=== PATIENT | female | born 1960 | race Caucasian/White ===

== ENCOUNTER 2016-12-27 20:48 | Inpatient (IN) ==
[2016-12-27 21:52] LABS: BASO% 0.4 % (0.0-0.8); EOS# 0.15 X1000 (0.0-0.7); EOS% 1.5 % (0.0-10.0); HEMOGLOBIN 11.6 g/dL (12.0-16.0); IMM GRAN# 0.15 X1000 (0.0-0.04); IMM GRAN% 1.5 % (0.0-0.5); LYMPH# 2.81 X1000 (1.2-3.4); MANUAL DIFF NEEDED? NO; MCHC 32.2 g/dL (33-37); MONO# 0.67 X1000 (0.11-0.59); MONO% 6.7 % (1.7-9.3); MPV 11.7 FL (7.4-10.4); NEUT% 61.9 % (42.2-75.2); PLT 259 X1000 (130-400); RBC 4.14 XMIL (4.2-5.4)
[2016-12-27] MEDS ORDERED: ATIVAN IV ONE (21:52)
[2016-12-27 21:56] LABS: INR 1.01; PROTIME 10.6 Seconds (9.2-11.7)
[2016-12-27 22:01] LABS: ALBUMIN 4.3 g/dL (3.5-5.0); CALCIUM 9.8 mg/dL (8.8-10.2); MAGNESIUM 1.9 mg/dL (1.5-2.7); TOTAL BILIRUBIN 0.21 mg/dL (0.20-1.00); TOTAL PROTEIN 7.3 g/dL (6.3-8.3)
[2016-12-27 22:18] LABS: CK INDEX 1.6 (0.0-2.5); CK-MB 4.01 ng/mL (0.0-5.0)
--- NOTE | 2016-12-27 22:39 | Diag Imaging Result Doc PS360 ---
EXAM: CHEST-PORTABLE - 12/27/2016 HISTORY: weakness/seizure TECHNIQUE: Portable chest 2140 COMPARISON: None. FINDINGS: Heart size appears borderline enlarged. Inspiration appears mildly shallow, and the projection is somewhat lordotic. There are calcified left hilar mediastinal lymph nodes from old granulomatous disease. There is bilateral mild interstitial marking prominence. There is hazy infiltrate at the lateral left base. There is no substantial pleural effusion or pneumothorax identified. IMPRESSION: Mild interstitial infiltrates, edema, or scarring. Hazy infiltrate at lateral left base. Electronically signed by Arturo Pearson 12/27/2016 10:37 PM
[2016-12-27] MEDS ORDERED: KEPPRA 1,000 MG/NS 1,000 MG/100 ML IVPB IV ONE ×2 (23:00→23:49)
--- NOTE | 2016-12-27 23:06 | Diag Imaging Result Doc PS360 ---
EXAM: HEAD W/O CONTRAST - 12/27/2016 HISTORY: new seizure TECHNIQUE: Dose reduction protocol COMPARISON: None. FINDINGS: There are mild atrophic changes. There is no evidence of hemorrhage, mass effect, midline shift, or hydrocephalus. There is no evidence of infarct, although acute infarcts may not be immediately visible. There is apparent chronic left maxillary sinusitis noted, primarily at the inferior portion of the sinus. IMPRESSION: No visible acute intracranial anatomy. No hemorrhage or mass effect. A [facility] physician provided preliminary results at 10:36 PM on 12/27/2016. Electronically signed by Arturo Pearson 12/27/2016 11:04 PM
--- NOTE | 2016-12-27 23:15 | PROVIDER DOCUMENTATION ---
HPI-General Adult - General Chief Complaint: Seizure Stated Complaint: possible seizure Time Seen by Provider: 12/27/16 20:56 Source: patient, family Allergies/Adverse Reactions: Patient Allergies Allergy/AdvReac Type Severity Reaction Status Date / Time No Known Allergies Allergy Verified 12/27/16 22:27 Home Medications: Home Medication List Medication Instructions Recorded Confirmed Last Taken Type Amitriptyline HCl [Amitriptyline 1 tab PO DAILY 12/27/16 12/27/16 12/27/16 History HCl] Aspirin [Aspir-Low] 1 tab PO DAILY 12/27/16 12/27/16 12/27/16 History Calcium Citrate/Vitamin D 2 tab PO DAILY 12/27/16 12/27/16 12/27/16 History [Citracal + D] Cetirizine HCl [Zyrtec] 1 tab PO DAILY 12/27/16 12/27/16 12/27/16 History Esomeprazole [Nexium] 1 tab PO DAILY 12/27/16 12/27/16 12/27/16 History Fenofibrate [Fenofibrate] 1 tab PO DAILY 12/27/16 12/27/16 12/27/16 History Folic Acid/Mv,Fe,Min [Centrum 1 tab PO DAILY 12/27/16 12/27/16 12/27/16 History Chewable Tablet] Furosemide [Lasix] 1 tab PO DAILY 12/27/16 12/27/16 12/27/16 History Glimepiride [Amaryl] 1 tab PO DAILY 12/27/16 12/27/16 12/27/16 History Levothyroxine [Synthroid] 1 tab PO DAILY 12/27/16 12/27/16 12/27/16 History Mirabegron [Myrbetriq] 1 tab PO DAILY 12/27/16 12/27/16 12/27/16 History Potassium Chloride 1 tab PO DIRECTED 12/27/16 12/27/16 Unknown History Quetiapine Fumarate [Seroquel] 1 tab PO DAILY 12/27/16 12/27/16 12/27/16 History Sertraline [Zoloft] 100 mg PO DAILY 12/27/16 12/27/16 12/27/16 History Simvastatin [Simvastatin] 1 tab PO DAILY 12/27/16 12/27/16 12/27/16 History Valsartan/Hydrochlorothiazide 1 tab PO DAILY 12/27/16 12/27/16 12/27/16 History [Diovan Hct 160-12.5 mg Tab] - History of Present Illness -Gen Adult Nature of Presenting Problems: pt From [facility]. RN witnessed two clonic-tonic like seizures today. She was incontinent. EMS states pt was postictal upon arrival. On arrival to ER, pt's mental status is as baseline per family. Family denies cough, fever, n /v, urinary frequency. Location of Pain/Injury: reports: none Pain Radiation: reports: no radiation Quality of Pain: reports: none Onset/Duration: reports: just prior to arrival Timing: reports: still present Context/Activities at Onset: reports: none Modifying Factors: improves with: nothing Associated Symptoms: reports: seizure. denies: chest pain, cough, dizziness, fever/chills, headaches, vomiting, weakness Similar Symptoms Previously?: No Recently seen or treated by another doctor?: No Review of Systems - Adult - REVIEW OF SYSTEMS - ADULT ROS:: ROS per family Constitutional: reports: no symptoms reported. denies: fever Eyes: reports: no symptoms reported Ears, Nose, Mouth & Throat: reports: no symptoms reported Cardiovascular: reports: no symptoms reported. denies: chest pain Respiratory: reports: no symptoms reported. denies: cough Gastrointestinal: reports: no symptoms reported. denies: abdominal pain Genitourinary: reports: no symptoms reported Musculoskeletal: reports: no symptoms reported. denies: bone pain Integumentary: reports: no symptoms reported. denies: rash Neurological: reports: see HPI Psychiatric: reports: no symptoms reported Endocrine: reports: no symptoms reported Hematologic/Lymphatic: reports: no symptoms reported Allergic/Immunologic: reports: no symptoms reported All Other Systems: Reviewed and Negative Past History - Adult - PAST MEDICAL HISTORY-ADULT Review of Records: reports: Old Records Reviewed, Nursing Assessment Review, Medications Reviewed, Social history reviewed & non-contributory. Major Childhood Illnesses: reports: denies history Cardiovascular: reports: denies history Respiratory: reports: denies history Gastrointestinal: reports: denies history Obstetrical/Gynecological: reports: denies history Genitourinary: reports: denies history Musculoskeletal: reports: denies history Neurological: reports: denies history Endocrine/Immune: reports: denies history Other Conditions: reports: denies history - IMMUNIZATION STATUS Childhood Immunizations: See Nurse Assessment Flu Vaccine: See Nurse Assessment - FAMILY HISTORY Family History: reviewed, not pertinent Physical Exam-General - PHYSICAL EXAM-ADULT Initial Vital Signs Reviewed: Yes (spo2 100%) - CONSTITUTIONAL General Appearance: appears well, alert, no apparent distress - EYES Eyes: pink conjunctivae - HEAD, EARS, NOSE, MOUTH & THROAT HENMT: normocephalic/atraumatic - NECK Neck: supple - RESPIRATORY Respiratory: lungs clear, normal breath sounds - CARDIOVASCULAR Cardiovascular: normal peripheral pulses, regular rate, rhythm, no edema - GASTROINTESTINAL (ABDOMEN) Abdominal Exam: normal bowel sounds, non tender, soft - MUSCULOSKELETAL Back Exam: normal inspection Extremity: normal range of motion, non-tender - SKIN Integumentary: normal color - NEUROLOGIC Neurologic: grossly normal, no motor/sensory deficits Progress - PLAN OF CARE/RESULTS Progress/Plan/Lab Results: Vital Signs - 8 hr 12/27/16 20:56 12/27/16 22:25 Temperature 97.8 F Pulse Rate 114 H 101 H Respiratory Rate 17 19 Blood Pressure 131/103 114/86 O2 Sat by Pulse Oximetry 109 H 92 L Laboratory Results - last 24 hr 12/27/16 12/27/16 12/27/16 21:30 21:30 21:30 WBC 10.02 RBC 4.14 L Hgb 11.6 L Hct 36.0 L MCV 87.0 MCH 28.0 MCHC 32.2 L RDW Std Deviation 13.5 Plt Count 259 MPV 11.7 H Immature Gran % (Auto) 1.5 H Neut % (Auto) 61.9 Lymph % (Auto) 28.0 Grundy % (Auto) 6.7 Eos % (Auto) 1.5 Baso % (Auto) 0.4 Immature Gran # (Auto) 0.15 H Neut # (Auto) 6.20 Lymph # (Auto) 2.81 Grundy # (Auto) 0.67 H Eos # (Auto) 0.15 Baso # (Auto) 0.04 PT 10.6 INR 1.01 PTT (Actin FS) 18.0 L Sodium 140 Potassium 4.0 Chloride 99 Carbon Dioxide 28 Anion Gap 13 BUN 21 Creatinine 1.0 H Estimated GFR/1.73 m2 57 BUN/Creatinine Ratio 21 Glucose 182 H Calculated Osmolality 287 Calcium 9.8 Magnesium 1.9 Total Bilirubin 0.21 AST 37 H ALT 29 Alkaline Phosphatase 61 Creatine Kinase 254 H Creatine Kinase Index 1.6 CK-MB (CK-2) 4.01 Troponin T Total Protein 7.3 Albumin 4.3 Globulin 3.0 Albumin/Globulin Ratio 1.4 12/27/16 21:30 WBC RBC Hgb Hct MCV MCH MCHC RDW Std Deviation Plt Count MPV Immature Gran % (Auto) Neut % (Auto) Lymph % (Auto) Grundy % (Auto) Eos % (Auto) Baso % (Auto) Immature Gran # (Auto) Neut # (Auto) Lymph # (Auto) Grundy # (Auto) Eos # (Auto) Baso # (Auto) PT INR PTT (Actin FS) Sodium Potassium Chloride Carbon Dioxide Anion Gap BUN Creatinine Estimated GFR/1.73 m2 BUN/Creatinine Ratio Glucose Calculated Osmolality Calcium Magnesium Total Bilirubin AST ALT Alkaline Phosphatase Creatine Kinase Creatine Kinase Index CK-MB (CK-2) Troponin T < 0.010 Total Protein Albumin Globulin Albumin/Globulin Ratio Orders Category Date Time Status Saline Loc NOW Care 12/27/16 21:20 Active CHEST-PORTABLE [RAD] Stat Exams 12/27/16 21:20 Completed HEAD W/O CONTRAST [CT] Stat Exams 12/27/16 21:20 Completed CBC WITH ELECTRONIC DIFF [HEME] Stat Lab 12/27/16 21:30 Completed CK PROFILE [SP CHEM] Stat Lab 12/27/16 21:30 Completed COMPREHENSIVE METABOLIC PANEL [CHEM] Stat Lab 12/27/16 21:30 Completed MAGNESIUM [CHEM] Stat Lab 12/27/16 21:30 Completed PROTIME WITH INR [COAG] Stat Lab 12/27/16 21:30 Completed PTT [COAG] Stat Lab 12/27/16 21:30 Completed TROPONIN T Stat Lab 12/27/16 21:30 Completed UA NIMS W/REFLEX CULT [URINALYSIS] Stat Lab 12/27/16 21:20 Uncollected URINE DRUG SCREEN Stat Lab 12/27/16 21:20 Uncollected Lorazepam [Ativan] Med 12/27/16 21:52 Discontinued 1 mg IV NOW ONE EKG [EKG] Stat Ther 12/27/16 21:20 Ordered EKG [EKG] Stat Ther 12/27/16 21:20 Ordered Case and plan of care discussed with Dr. Decker Result Diagrams: 12/27/16 21:30 12/27/16 21:30 - XRAY 1 XRAY Study: Chest Impression: See EMR Report - CT/MRI 1 CT Study: Head Impression: Normal - CONSULTS/PCP/HOSPITALIST Notification #1 *Consult/PCP/Hospitalist*: Dr. Leonard Time Discussed: 00:00 Consult Disposition: Admit Departure - Departure Date of Disposition Decision: 12/28/16 Time of Disposition Decision: 00:00 DIAGNOSIS: Seizure-like activity Disposition: ADMITTED INPATIENT 09 Certified Medical Emergency: Emergent Condition: Stable Referrals and Follow-Ups: Barbara Vu MD [Primary Care Provider] - - Critical Care Note This patient required my direct & personal management of CC.: No Attestation - Physician/ DAVID Attestation Patient care was provided by Advanced Practice Provider:: Yes Advanced Practice Provider:: Toan Mcdonald Advanced Practice Provider documentation review:: The Mid-level provider documentation, treatment plan and medical decision making was reviewed by the physician who agrees with all treatment and medical decision making by the MLP. The physician spent face to face time with patient:: No Advanced Practice Provider documentation review:: Supervising physician onsite and consulted in the evaluation and care of this patient. The physician did not have a face to face encounter with the patient.
--- NOTE | 2016-12-28 00:23 | ED EKG INTERP ---
This chart was entered by Celestino Ocampo Scribe, acting as scribe for Patrick Adams MD. EKG Interpretation - EKG Time of EKG reading by physician:: 21:24 EKG Read and Signed by:: Patrick Adams EKG Interpretation (*Must complete 3 of following elements*): Normal Rate: 104 Rhythm: Sinus tachycardia Attestation - Physician/ DAVID Attestation Patient care was provided by Advanced Practice Provider:: No The physician spent face to face time with patient:: Yes Advanced Practice Provider documentation review:: Supervising physician onsite and consulted in the evaluation and care of this patient. The physician did have a face to face encounter with the patient. This chart was documented by the indicated scribe, (Celestino Ocampo Scribe) and accurately reflects the services I performed and decisions made by me, Patrick Panda MD, as attested by the provider's signature.
[2016-12-28] MEDS ORDERED: TYLENOL PO PRN (01:22)
[2016-12-28] MEDS: LOVENOX SUBQ SCH (03:02)
--- NOTE | 2016-12-28 03:27 | HISTORY AND PHYSICAL ---
PCP: Dr. Barbara Vu. CHIEF COMPLAINT: New onset seizures. HISTORY OF PRESENT ILLNESS: Ms. Gilliland is a 56-year-old lady with past medical history of mental retardation, hypertension, diabetes, hyperlipidemia, OCD, paranoid schizophrenia who comes to the hospital after having 2 seizures. The history was obtained by Nicole Eldridge who is Ms. Gilliland's legal guardian and also by the mixing house operator where the patient lives. According to the mixing house operator, the patient has been acting differently all day on the day of admission. According to the supervisor product inspection, she was slower than usual, taking longer to eat, seemed more confused. Around 7:30 p.m., the patient was sitting on the commode and nurse was standing by the patient's side who witnessed a seizure, tonic-clonic, which lasted about 1 minute. The patient lost urinary continence, did not bite the tongue. The patient did not fall as she was being held on the commode during the episode. After the seizure, the patient seemed postictal for about 20 seconds and then another seizure happened again, which lasted for about 30 seconds. The patient has no history of previous seizures. This is the first time it happened. The patient's legal guardian states that about a week ago, the patient had vomiting, diarrhea, fever of 101.8 degrees. The patient was taken to the PCP on Thursday but by then, Ms. Gilliland was back to normal. REVIEW OF SYSTEMS: According to the mixing house operator, it seems that Ms. Gilliland is a little bit more jerky than usual, especially with her right lower extremity. Ms. Gilliland has no complaints. All systems were reviewed and were negative except as stated above. In the Emergency Room, the patient was given lorazepam 1 mg and 1000 mg of levetiracetam. PAST MEDICAL HISTORY: Mental retardation, hypertension, diabetes mellitus, hyperlipidemia, OCD, paranoid schizophrenia, anxiety, lymphedema, hearing loss, urinary incontinence. PAST SURGICAL HISTORY: Tonsillectomy. ALLERGIES: None. HOME MEDICATIONS: 1. Calcium tablets daily. 2. Nexium 40 mg tablet p.o. daily. 3. Zyrtec 10 mg tablet p.o. daily. 4. Amaryl 2 mg p.o. daily. 5. Potassium 10 mEq p.o. daily. 6. Lasix 20 mg every other day. 7. Myrbetriq 50 mg, 1 tablet p.o. daily. 8. Fenofibrate 160 mg tablet p.o. daily. 9. Diovan 160 mg/12.5 mg, 1 tablet p.o. daily. 10.Levothyroxine 50 mcg, 1 tablet p.o. daily. 11.Seroquel 300 mg, 1 tablet p.o. daily. 12.Aspirin 81 mg tablet p.o. daily. 13.Zoloft 100 mg tablet p.o. daily. 14.Amitriptyline 25 mg p.o. daily. 15.Simvastatin 20 mg tablet p.o. at bedtime. SOCIAL HISTORY: The patient's guardians deny any smoking, alcohol or drugs. The patient has lived in the long-term in [place]. The patient has been under their care for the last 12 years. The caretakers do not know anything about Ms. Gilliland's past. They have been taking care of her for the last 12 years. Other than that, they are not aware of her social or medical situation. Previously, Ms. Gilliland was being taken care of by her mother who also has mental retardation. FAMILY HISTORY: Sister and mother with mental retardation. Mother also has CHF , CAD, diabetes. Father had coronary artery disease and of lung cancer. LABORATORY DATA: White blood cell count 10.2, hemoglobin 11.6, hematocrit 36, platelets 259. Sodium 140, potassium 4, BUN 21, creatinine 1, glucose 182. IMAGING: Chest x-ray shows hazy infiltrates at lateral left base. Head CT shows no acute intracranial process. PHYSICAL EXAMINATION: VITAL SIGNS: Temperature 97.8 degrees, pulse 101, respirations 19, blood pressure 114/86, oxygen saturation 92% on room air. GENERAL: The patient is alert and oriented x 1, which is at her baseline. No acute distress. HEENT: Head is normocephalic, atraumatic. Eyes: PERRLA. Moist mucous membranes. NECK: Supple. PULMONARY: Well ventilated bilaterally. No wheezing, rales or crackles. CARDIOVASCULAR: S1, S2. No rubs, murmurs or gallops. ABDOMEN: Soft, nontender, nondistended. EXTREMITIES: No lower extremity edema. The patient has a bruise on her right middle toe which occurred at home a couple of days ago. NEUROLOGIC: Cranial nerves are intact. PSYCHIATRIC: According to the patient's caretakers, she is almost back to baseline. At times she seems more confused than usual, waxing and waning. ASSESSMENT AND PLAN: 1. New-onset seizures. The etiology is currently unknown. Does not seem to be infectious at the moment. White blood cell count is stable. We will continue to monitor. As mentioned above, head CT was also done which shows no acute intracranial process. The patient was already given Keppra and we will continue giving this medication and Neurology consult will be considered. An EEG may be needed. 2. Hypertension. We will continue the patient's home medication, Diovan. 3. Hyperlipidemia. We will continue home medication, fenofibrate. 4. Hypothyroidism. We will continue home medication, levothyroxine 50 mcg. 5. Anxiety. We will continue patient's home medications, Seroquel 300 mg and Zoloft 100 mg. cc: Shalini Leonard MD MTDD
[2016-12-28 03:30] LABS: URINE MICRO REVIEW NEEDED? NO; URINE SOURCE CLEAN CATCH
[2016-12-28 03:36] LABS: BILIRUBIN URINE NEGATIVE (NEGATIVE); BLOOD URINE NEGATIVE (NEGATIVE); COLOR YELLOW; GLUCOSE URINE NEGATIVE (NEGATIVE); LEUKOCYTES URINE MODERATE (NEGATIVE); NITRITE URINE NEGATIVE (NEGATIVE); PH URINE 6.5; PROTEIN URINE TRACE mg/dL (NEGATIVE); SP GRAVITY URINE 1.019; TURBIDITY URINE CLEAR (CLEAR); UROBILINOGEN URINE NORMAL (NORMAL)
[2016-12-28 03:38] LABS: UR EPITHELIAL CELLS <10 /HPF (<10); URINE BACTERIA NEGATIVE /HPF; URINE CULTURE NEEDED? YES; URINE RBC <10 /HPF (<10); URINE WBC <10 /HPF (<10)
[2016-12-28 03:46] LABS: UR AMPHETAMINES QUAL NONE DETECTED (NONE DETECT); UR BARBITUATES QUAL NONE DETECTED (NONE DETECT); UR BENZODIAZEPIN QUAL NONE DETECTED (NONE DETECT); UR CANNABINOIDS QUAL NONE DETECTED (NONE DETECT); UR COCAINE QUAL NONE DETECTED (NONE DETECT); UR METHADONE QUAL NONE DETECTED (NONE DETECT); UR OPIATES QUAL NONE DETECTED (NONE DETECT); UR OXYCODONE QUAL NONE DETECTED (NONE DETECT); UR PCP QUAL NONE DETECTED (NONE DETECT)
[2016-12-28] MEDS: MYRBETRIQ E.R. PO SCH (09:45)
[2016-12-28] MEDS: KEPPRA PO SCH ×2 (09:46→20:27)
[2016-12-28] MEDS: LASIX PO SCH (09:46)
[2016-12-28] MEDS: ZOLOFT PO SCH (09:46)
[2016-12-28] MEDS: HYDROCHLOROTHIAZIDE PO SCH (09:46)
[2016-12-28] MEDS: DIOVAN PO SCH (09:46)
[2016-12-28] MEDS: ASPIRIN PO SCH (09:46)
[2016-12-28] MEDS ORDERED: KLONOPIN PO ONE (11:53)
[2016-12-28] MEDS ORDERED: ATIVAN PO ONE (11:54)
--- NOTE | 2016-12-28 19:13 | PROGRESS NOTE ---
DATE: 12/28/2016 SUBJECTIVE: The patient has no focal complaints. She is awake, alert. Per the nurse today though she is not at baseline, she is still confused, apparently she is usually pretty with it. She knows where she is but she is still asking questions that are where she is unclear where she is and what is going on. Again I am not familiar with her. She has significant developmental delay, intellectual impairment but apparently she usually is oriented. OBJECTIVE: Vital signs: Blood pressure 103/69, heart rate 73, respiratory 16, temperature 98.6 degrees, 100% on 2 L. Cardiovascular: Regular rate and rhythm. Pulmonary: Bilateral breath sounds. Clear to auscultation. GI: Soft, nontender, nondistended. Bowel sounds are positive. LABORATORY DATA: Nothing new today. She is anemic with normocytic indices. PROBLEM LIST: 1. Seizure. She seems to be stable on the current dose of Keppra. I am going to continue that. We will get neurology opinion and EEG tomorrow. If she is seizure free I think she could probably go home. 2. Hypertension appears to be stable. 3. Anemia. We will check iron stores and follow closely. DISPOSITION: Hopefully to [facility] tomorrow after neuro evaluation. cc: Migel Lawson MD
[2016-12-28] MEDS: SEROQUEL PO SCH (20:27)
[2016-12-28] MEDS: ZOCOR PO SCH (20:28)
[2016-12-28] MEDS: LOFIBRA PO SCH (20:28)
[2016-12-29] MEDS: LOVENOX SUBQ SCH (05:09)
[2016-12-29 06:57] LABS: HEMATOCRIT 39.3 % (37.0-47.0); HEMOGLOBIN 12.5 g/dL (12.0-16.0); MCH 28.3 PG (27-31); MCHC 31.8 g/dL (33-37); MCV 89.1 FL (81-99); RBC 4.41 XMIL (4.2-5.4)
[2016-12-29 07:12] LABS: IRON SATURATION 13 %; TIBC 490 ug/dL; TOTAL IRON 65 ug/dL (49-151); UNBOUND IRON 425 ug/dL (112-346)
--- NOTE | 2016-12-29 07:12 | EKG Report ---
Test Performed on : 12/27/2016 9:24:53 PM Test Reason : SEIZURE Blood Pressure : / mmHG Vent. Rate : 104 BPM Atrial Rate : 104 BPM P-R Int : 116 ms QRS Dur : 110 ms QT Int : 364 ms P-R-T Axes : 055 031 025 degrees QTc Int : 478 ms Sinus tachycardia. Otherwise normal ECG No previous ECGs available Unconfirmed Result
[2016-12-29 07:13] LABS: MAGNESIUM 2.3 mg/dL (1.5-2.7); POTASSIUM 4.4 mmol/L (3.5-5.1)
[2016-12-29] MEDS: MYRBETRIQ E.R. PO SCH (08:47)
[2016-12-29] MEDS: ZOLOFT PO SCH (08:48)
[2016-12-29] MEDS: ASPIRIN PO SCH (08:48)
[2016-12-29] MEDS: KEPPRA PO SCH ×2 (08:48→20:39)
[2016-12-29] MEDS: DIOVAN PO SCH (08:49)
[2016-12-29] MEDS: HYDROCHLOROTHIAZIDE PO SCH (08:49)
[2016-12-29] MEDS: LASIX PO SCH (08:49)
[2016-12-29] MEDS ORDERED: TESSALON PO ONE (12:37)
[2016-12-29] MEDS ORDERED: ROBITUSSIN PO ONE (12:37)
[2016-12-29] MEDS ORDERED: ROCEPHIN 1 GM/NS 1 GM/50 ML IVPB IV SCH (12:45)
--- NOTE | 2016-12-29 13:01 | Diag Imaging Result Doc PS360 ---
EXAM: CHEST-2 VIEWS HISTORY: cough/shortness of breath TECHNIQUE: Two views COMPARISON: 12/27/2016 FINDINGS: The lungs are well expanded on the current exam. There are no infiltrates on the current study. There is a moderate sized hiatal hernia. Heart is not enlarged. The vessels are not distended. No pleural effusions. IMPRESSION: No pneumonia or congestive failure on the current exam. There is a moderate sized hiatal hernia. Electronically signed by Keyshawn Rincon 12/29/2016 12:59 PM
[2016-12-29] MEDS: DUONEB (A & A) INH SCH ×3 (13:38→23:58)
--- NOTE | 2016-12-29 17:12 | PROGRESS NOTE ---
DATE: 12/29/2016 SUBJECTIVE: The patient has been having coughing fit since yesterday. The patient does cough up white colored sputum. No seizure activity noted on so far. OBJECTIVE: Vital Signs: Temperature 98.4 degrees, blood pressure 108/68, heart rate 104, respirations 18, O2 saturations 94% on room air. General: This is an elderly female, lying in bed, in no acute distress. Head: Normocephalic, atraumatic. Heart: S1, S2. Normal. Tachycardic. Lungs: Equal air entry bilaterally. No crackles. No rales. Abdomen: Positive bowel sounds. Soft, nontender, nondistended. Extremities: No edema. No cyanosis. No calf tenderness. Neurologic: The patient is alert and oriented x3. LABS: CBC: White blood cell count 10, hemoglobin 12, hematocrit 39, platelets 325,000. Chem: Sodium 141, potassium 4.4, chloride 97, CO2 30, BUN 31, creatinine 1.1, glucose 117. ASSESSMENT AND PLAN: 1. Seizure disorder. The patient has had no further seizure activity. The case was discussed with Dr. Vargas. We will continue on Keppra as ordered. 2. Chronic cough. The x-ray is unremarkable. We will start the patient on bronchodilator therapy and Tessalon Perles. 3. Mental retardation. Aware. 4. Acute kidney injury. We will hold the patient's antihypertensives. 5. Hypotension. The patient's blood pressure medications are on hold. 6. Deep vein thrombosis prophylaxis. Continue on Lovenox. cc: Chioma lBancas MD
--- NOTE | 2016-12-29 17:21 | EEG REPORT ---
DATE: 12/28/2016 REFERRING PHYSICIAN: Dr. Lawson. EEG NUMBER: [id number]. RESORT HOUSEKEEPER: Veda Mello. TECHNIQUE: A digitally recorded EEG is obtained with 1 additional channel for EKG. HISTORY OF PRESENT ILLNESS: A 56-year-old, right-handed female with mental retardation, OCD, paranoid schizophrenia, who is admitted to the hospital after having 2 back -to-back witnessed seizures. This is new onset for her. An EEG is ordered to detect evidence of increased propensity for seizure. MEDICATIONS: Mumtaz. Has received Ativan on admission. Seroquel, amitriptyline, Zoloft. EEG FINDINGS: This is a technically limited EEG due to motion and myogenic artifact. A posterior dominant alpha rhythm is notably absent. The background consists of mixed frequencies, alpha, beta, and theta. Excessive beta frequency is noted diffusely. No epileptiform discharges and no seizures are seen. No definite persistent focal slowing. Hyperventilation was not performed. Photic stimulation did not induce a photic driving response. The patient becomes drowsy but stage II sleep is not observed. The EKG reveals tachycardia with a regular R to R interval. IMPRESSION AND CLINICAL CORRELATION: This is an abnormal, technically limited, routine EEG due to: 1. Mild diffuse slowing suggestive of a mild, nonspecific encephalopathy. Generalized slowing is a nonspecific finding that can be seen in processes that diffusely affect the cerebrum including toxic, metabolic, posthypoxic, pharmacologic, and infectious etiologies. Excessive beta is usually a medication effect, often seen with medications such as benzodiazepines. No epileptiform abnormalities and no seizures are noted on the current study. This does not rule out an underlying seizure disorder. Clinical correlation is advised. cc: MD Migel Lopez MD [facility]Hang
--- NOTE | 2016-12-29 17:45 | CONSULTATION ---
DATE OF CONSULTATION: 12/29/2016 REASON FOR CONSULTATION: The patient is seen in consultation at the request of Dr. Leonard for evaluation of seizures. HISTORY OF PRESENT ILLNESS: 56-year-old right-handed female with mental retardation is admitted to the hospital yesterday after having 2 seizures. The history is taken by the housekeeper/custodian/laundry worker at bedside today. She says that the patient was kind of slow all day that day taking longer to eat, seemed more confused and she was having some visual hallucinations of bugs on the wall. In the evening while on the commode with the nurse standing next to her she suddenly had a witnessed seizure with shaking all over lasting 1 minute. There was about 20 seconds after the 1st seizure and before the 2nd seizure which lasted about 30 seconds. She was postictal afterwards. There was no history of seizures with the patient. However the patient's records go back only to about 11 years. A week ago the patient did have nausea, vomiting, diarrhea and a fever but that subsided shortly thereafter and before she was seen by her primary care physician the following Thursday. In the emergency room the patient was given Ativan and loaded with Keppra. She was started on Keppra maintenance at 500 mg b.i.d. PAST MEDICAL HISTORY: Mental retardation, hypertension, diabetes, hyperlipidemia, OCD, paranoid schizophrenia, anxiety, lymphedema, hearing loss, urinary incontinence, tonsillectomy. FAMILY HISTORY: Her sister and mother also have some degree of mental retardation. I believe her mother has . Father had heart disease and from lung cancer. No one to their knowledge had seizures SOCIAL HISTORY: The patient lives in a detention. There is no smoking, alcohol or drugs. They have had the patient for about 11 years and they do not know her past before that. ALLERGIES: No known drug allergies. MEDICATIONS: Reviewed in the chart. Notable for Keppra 500 mg b.i.d. which has been started this admission. REVIEW OF SYSTEMS: Difficult to obtain due to the patient's mental status. PHYSICAL EXAMINATION: Vital Signs: Reviewed. Afebrile, blood pressure 100/65 , pulse 91, respirations 16. General: This is a female sitting up in bed fidgety , no acute distress. Her mussel farmer is at bedside. Neck: Supple. No meningismus. HEENT : Eyes anicteric. No erythema or drainage. Moist mucous membranes. Normocephalic, atraumatic. Lungs: No increased work of breathing. She is having some coughing at times. Extremities : Warm and well perfused. There is some mild lower extremity edema. Good pulses. Neurologic: Mental status. She is awake and alert. She is oriented to self and hospital. She knows her date but does not say the year. She is not usually otherwise oriented to timing. She can follow some simple commands. PERRL. Conjugate gaze. Ocular movements full in the horizontal planes. Face symmetric with equal activation. Tongue is midline. Palate elevates symmetrically. She is moving all of her extremities equally, I see no asymmetry there. Reflexes no clonus, toes are downgoing. DIAGNOSTICS: Routine EEG performed today was personally reviewed. It showed mild generalized background slowing which is nonspecific and also some excessive beta frequency diffusely which is most often a medication effect and may be secondary to the Ativan that she recently received. No epileptiform discharges and no seizures were noted on this current study. This does not rule out an underlying seizure disorder. A head CT was personally reviewed. No acute findings. LAB: Normal white count. Sodium, potassium, calcium and magnesium all within normal limits. Creatinine 1.1, BUN 31, AST of 37, CK was 254, trace protein and moderate leukocytes on urinalysis. Toxicology was negative. ASSESSMENT/PLAN: 56-year-old right-handed female with mental retardation admitted with new onset seizures as detailed above. Her exam is nonfocal and a head CT did not show any acute findings. All of this is reassuring. An EEG did not show any epileptiform findings. Because we do not know her history prior to 11 years ago it is not entirely clear to me whether or not she has had seizures in the more distant past, and I am not sure we will be able to determine that. I think it is therefore reasonable to continue the Keppra 500 mg b.i.d. provided she tolerates it from a behavioral standpoint. If she does not, we can think about switching to another antiepileptic. Seizure precautions advised. No driving, swimming or bathing alone, climbing to heights, etc. She should refrain from activities that could cause injury to herself or others should she have a seizure while performing them. Thank you for this consultation. cc: Alice Perez MD [facility]Hang
[2016-12-29] MEDS ORDERED: TUSSIONEX LIQUID PO ONE (18:56)
[2016-12-29] MEDS: ZOCOR PO SCH (20:38)
[2016-12-29] MEDS: COLACE PO SCH (20:39)
[2016-12-29] MEDS: TESSALON PO SCH (20:39)
[2016-12-29] MEDS: SEROQUEL PO SCH (20:39)
[2016-12-29] MEDS: LOFIBRA PO SCH (20:43)
[2016-12-29] MEDS ORDERED: DULCOLAX PR SCH (21:00)
[2016-12-30] MEDS: DUONEB (A & A) INH SCH ×2 (03:53→09:19)
[2016-12-30] MEDS: LOVENOX SUBQ SCH (06:32)
[2016-12-30] MEDS: ROBITUSSIN-DM PO PRN ×2 (06:33→14:05)
[2016-12-30] MEDS ORDERED: DUONEB (A & A) ONE ×2 (07:06)
[2016-12-30 07:08] LABS: HEMATOCRIT 37.4 % (37.0-47.0); HEMOGLOBIN 11.8 g/dL (12.0-16.0); MCH 28.4 PG (27-31); MCHC 31.6 g/dL (33-37); MCV 89.9 FL (81-99); MPV 11.7 FL (7.4-10.4); RBC 4.16 XMIL (4.2-5.4)
[2016-12-30 07:47] LABS: CALCIUM 9.3 mg/dL (8.8-10.2); POTASSIUM 3.7 mmol/L (3.5-5.1)
[2016-12-30 08:36] LABS: FREE T4 1.05 ng/dL (0.93-1.70)
[2016-12-30 08:42] VITALS: BP 116/65
[2016-12-30] MEDS: TESSALON PO SCH ×2 (09:23→14:08)
[2016-12-30] MEDS: KEPPRA PO SCH (09:23)
[2016-12-30] MEDS: COLACE PO SCH (09:24)
[2016-12-30] MEDS: MYRBETRIQ E.R. PO SCH (09:24)
[2016-12-30] MEDS: ZOLOFT PO SCH (09:24)
[2016-12-30] MEDS: ASPIRIN PO SCH (09:24)
--- NOTE | 2016-12-30 14:26 | DISCHARGE SUMMARY ---
ADMISSION DATE: 12/28/2016 DISCHARGE DATE: 12/30/2016 CONSULTATIONS: Dr. Alice Perez with Neurology. PERTINENT PROCEDURES: 1. Chest x-ray showed mild interstitial infiltrates, edema or scarring has infiltrated lateral left base. 2. EKG showed sinus tachycardia at a rate of 104. 3. Head CT did show no visible acute intracranial anatomy. No hemorrhage or mass effect. 4. EEG showed mild generalized slowing, was nonspecific. Had some excessive beta frequency diffusely which is most often a medication effect secondary to Ativan. No epileptiform discharge and no seizures were noted. 5. Chest x-ray showed no pneumonia or congestive heart failure. DISCHARGE DIAGNOSES: 1. Seizure disorder. 2. Chronic cough 3. Mental retardation 4. Acute kidney injury. 5. Hypotension 6. Anxiety. HOSPITAL COURSE: Ms. Gilliland is a 56-year-old female with past medical history of mental retardation, hypertension, diabetes, hyperlipidemia, OCD, paranoid schizophrenia , who is a resident of [facility]. She was brought to the ED after having 2 witnessed seizures by the visiting housekeeper there, Ms. Eldridge. According to Ms. Eldridge, the patient had been acting differently all day on the day of her admission. She had been slower than usual , taking longer to eat, seemed more confused. Around 7:30 p.m. she was sitting on the commode. The nurse was standing by the patient's side who witnessed the seizure, tonic-clonic. It lasted about a minute. The patient had a loss urinary continence. After the seizure the patient was postictal for about 20 seconds and then another seizure happened again that lasted for about 30 seconds. They did report that about a week ago the patient was vomiting, had diarrhea and a fever 101.8. She was taken to her PCP, Crystal Huff, but since that time she had been back to normal. She was admitted for new onset of seizures. They did a head CT. It was normal. She was given Keppra in the ED and continued on this medication with a neurology consult. Neurology did do an EEG and it did not show any signs of epileptiform discharges or seizures, and they felt it was reasonable to continue the patient on Keppra provided that she tolerates it from a behavioral standpoint, and if she did not, they could switch it to another antiepileptic medication and place her on seizure precautions. No driving, swimming, or bathing alone, climbing to heights. Refrain from activities that she could cause injury to herself or others since she had a seizure while performing them. She has remained seizure free since admission and she will be [facility] back [facility] today. VITAL SIGNS: Temperature is 98.3 degrees, heart rate 109, respirations 20, blood pressure 116/65, O2 is 99%. DISCHARGE DIET: Healthy heart. DISCHARGE MEDICATIONS: 1. Albuterol inhaler 8.5 g inhaled q.4 hours p.r.n. 2. Amitriptyline 25 mg p.o. daily. 3. Augmentin 875/125 1 each p.o. b.i.d. for 5 days. 4. Aspirin 81 mg p.o. daily. 5. Tessalon Perles 100 mg p.o. t.i.d. p.r.n. 6. Citracal D 2 tabs p.o. daily. 7. Zyrtec 1 tab p.o. daily. 8. Nexium 40 mg p.o. daily. 9. Fenofibrate 160 mg p.o. daily. 10. Centrum chewable tab 1 each p.o. daily. 11. Lasix 20 mg p.o. daily. 12. Amaryl 2 mg p.o. daily. 13. Robitussin DM 10 mL p.o. q.4 hours p.r.n. 14. Probiotic 1 p.o. daily. 15. Keppra 500 mg p.o. q.12 hours. 16. Synthroid 50 mcg p.o. daily. 17. Myrbetriq 50 mg p.o. daily. 18. Potassium chloride 10 mEq p.o. as directed. 19. Seroquel 300 mg p.o. daily. 20. Zoloft 100 mg p.o. daily. 21. Simvastatin 20 mg p.o. daily. 22. Diovan HCT 160 12.5 mg tablet p.o. daily. FOLLOW UP: Ms. Gilliland is being discharged back to her [facility]. She will follow up with Dr. Vu in 2 weeks [address] as Dr. Jenkins, as well as with Neurology. Has been given educational seizure precautions as well as her new medications. She will return to the ED for any worsening of symptoms. Dictated by CASSANDRA Womack for Chioma Blancas MD cc: MD Barbara Tlelo MD MTDD
== END 2016-12-30 15:14 | disposition home or self-care (01) ==
LOC: SUPCPDRO → ED 20:48 → 3N 12-28 01:31 → SUATTDRO 12-28 01:31
PROVIDERS: ATTEND Internal Medicine